=== PATIENT | female | born 1995 | race Caucasian/White ===

== ENCOUNTER 2016-06-05 14:33 | Emergency (ER) | payer OTHER ==
[~2016-06-05] VITALS: Wt 63.5 kg
[~2016-06-05 14:33] MED LIST: AMOXICILLIN500 MG PO; AMOXIL500 MG PO; ANUSOL HC30 GM PO; AUGMENTIN 875 M1 TAB PO; BACTRIM DS 8001 TA1 PO; CIPRO250 MG PO; CIPROFLOXACIN500 MG PO; CLARITIN10 MG PO; CLEOCIN150 MG PO; CLINDAMYCIN HC300 MG PO; COLACE100 MG PO; CYCLOBENZAPRINE10 MG PO; CYCLOBENZAPRINE5 M3 PO; DIFLUCAN150 MG PO; FLEXERIL10 MG PO; FLONASE 0.05% 121 EA NAS; FLONASE ALLERG9.9 ML NAS; FLONASE0.05 MG/AC NS; HYDROCODONE BIT1 T11 PO; IBU800 M1 PO; IBUPROFEN PO; KEFLEX500 MG PO; MACROBID100 M1 PO; MIRALAX POWDER17 G1 PO; MOTRIN 600 MG E4 TAB PO; MOTRIN600 MG PO; MOTRIN800 MG PO; Motrin,Rufen800 MG PO; NAPROSYN500 MG PO; NEXIUM40 MG PO; NKHM; NORCO 5-325 TA1 EACH PO; OMEPRAZOLE40 MG PO; PENICILLIN VK500 MG PO; PEPCID20 MG PO; PREDNISONE10 MG PO; PREDNISONE20 MG PO; PRENATAL1 TA1 PO; PREVACID15 MG PO; Peridex 473 ML473 ML PO; ROBITUSSIN AC 110 ML PO; ROBITUSSIN DM120 ML PO; SALINE NASAL M126 ML NAS; SEPTRA DS 800 M1 TAB PO; TAMIFLU75 MG PO; TRAMADOL HCL50 MG PO; TYLENOL325 M1 PO; ULTRAM50 MG PO; ZANTAC 150150 MG PO; ZITHROMAX Z PA250 MG PO; ZOFRAN ODT4 MG SL; ZOFRAN4 MG PO; ZYRTEC10 MG PO
[2016-06-05] MEDS ORDERED: NEXPLANON68 M2 SQ (14:42)
== END 2016-06-05 16:26 | disposition home or self-care (01) ==
LOC: ED 14:33
DX: S29.019A Strain of muscle and tendon of unspecified wall of thorax, initial encounter (principal); F17.200 Nicotine dependence, unspecified, uncomplicated; K21.9 Gastro-esophageal reflux disease without esophagitis; G43.909 Migraine, unspecified, not intractable, without status migrainosus; Z79.899 Other long term (current) drug therapy; Z91.030 Bee allergy status; Z91.018 Allergy to other foods; X58.XXXA Exposure to other specified factors, initial encounter; Y93.89 Activity, other specified; Y92.34 Swimming pool (public) as the place of occurrence of the external cause; Y99.9 Unspecified external cause status

== ENCOUNTER 2016-10-04 13:04 | Emergency (ER) | payer OTHER ==
[~2016-10-04] VITALS: Ht 160 cm; Wt 63.5 kg
[~2016-10-04 13:04] MED LIST changes: +NEXPLANON68 M2 SQ
[2016-10-04] MEDS ORDERED: CYCLOBENZAPRINE5 M3 PO (14:27)
== END 2016-10-04 23:13 | disposition home or self-care (01) ==
LOC: ED 13:04
DX: M62.830 Muscle spasm of back (principal); M54.6 Pain in thoracic spine; F17.200 Nicotine dependence, unspecified, uncomplicated; G43.909 Migraine, unspecified, not intractable, without status migrainosus; K21.9 Gastro-esophageal reflux disease without esophagitis; Z79.899 Other long term (current) drug therapy; Z91.030 Bee allergy status

== ENCOUNTER 2016-11-25 10:26 | Emergency (ER) | payer OTHER ==
[2016-11-25] MEDS ORDERED: PENICILLIN VK500 MG PO (10:30)
[2016-11-25] MEDS ORDERED: Peridex 473 ML473 ML PO (10:30)
[2016-11-25] MEDS ORDERED: NAPROSYN500 MG PO (10:30)
== END 2016-11-25 10:33 | disposition home or self-care (01) ==
LOC: ED 10:26
DX: K02.9 Dental caries, unspecified (principal); R03.0 Elevated blood-pressure reading, without diagnosis of hypertension; K21.9 Gastro-esophageal reflux disease without esophagitis; G43.909 Migraine, unspecified, not intractable, without status migrainosus; F17.200 Nicotine dependence, unspecified, uncomplicated; Z91.030 Bee allergy status; Z91.018 Allergy to other foods

== ENCOUNTER 2017-03-23 12:21 | Emergency (ER) | payer OTHER ==
[~2017-03-23] VITALS: Ht 160 cm; Wt 72.6 kg
[2017-03-23] MEDS ORDERED: Peridex 473 ML473 ML PO (12:50)
[2017-03-23] MEDS ORDERED: NAPROSYN500 MG PO (12:50)
[2017-03-23] MEDS ORDERED: ZOFRAN4 MG PO (12:50)
[2017-03-23] MEDS ORDERED: PENICILLIN VK500 MG PO (12:50)
== END 2017-03-23 12:43 | disposition home or self-care (01) ==
LOC: ED 12:21
DX: K02.9 Dental caries, unspecified (principal); R03.0 Elevated blood-pressure reading, without diagnosis of hypertension; F17.200 Nicotine dependence, unspecified, uncomplicated; K21.9 Gastro-esophageal reflux disease without esophagitis; G43.909 Migraine, unspecified, not intractable, without status migrainosus; Z91.030 Bee allergy status; Z91.018 Allergy to other foods

== ENCOUNTER 2017-03-27 21:51 | Emergency (ER) | payer OTHER ==
[~2017-03-27] VITALS: Ht 160 cm; Wt 72.6 kg
[2017-03-27] MEDS ORDERED: CLINDAMYCIN HC300 MG PO (22:31)
== END 2017-03-27 22:44 | disposition home or self-care (01) ==
LOC: ED 21:51
DX: K02.9 Dental caries, unspecified (principal); F17.200 Nicotine dependence, unspecified, uncomplicated; Z79.899 Other long term (current) drug therapy; Z91.030 Bee allergy status; Z91.018 Allergy to other foods

== ENCOUNTER 2017-08-08 12:36 | Emergency (ER) | payer OTHER ==
[~2017-08-08] VITALS: Ht 160 cm; Wt 72.6 kg
[2017-08-08 13:21] LABS: BILIRUBIN NEGATIVE (NEGATIVE); BLOOD 1+ (NEGATIVE); CLARITY SL CLOUDY (CLEAR); COLOR YELLOW (YELLOW); GLUCOSE NEGATIVE (NEGATIVE); KETONE NEGATIVE (NEGATIVE); LEUKO ESTERASE 2+ (NEGATIVE); NITRITE NEGATIVE (NEGATIVE); PH 6.5 (5.0-9.0); UROBILINOGEN 0.2 E.U./dl (0.2-1.0)
[2017-08-08 14:03] LABS: BACTERIA 2+; EPITHELIAL CELLS 30-40
[2017-08-08] MEDS ORDERED: PYRIDIUM200 M1 PO (14:54)
[2017-08-08] MEDS ORDERED: SEPTDS PO (14:54)
== END 2017-08-08 14:56 | disposition home or self-care (01) ==
LOC: ED 12:36
PROVIDERS: Physician Assistant
DX: R30.0 Dysuria (principal); R35.0 Frequency of micturition; R39.15 Urgency of urination; Z91.030 Bee allergy status

== ENCOUNTER 2018-03-04 19:11 | Emergency (ER) | payer OTHER ==
[~2018-03-04] VITALS: Ht 162.5 cm; Wt 72.6 kg
[~2018-03-04 19:11] MED LIST changes: +PYRIDIUM200 M1 PO; +SEPTDS PO
[2018-03-04] MEDS ORDERED: PRENATAL VITAM1 EAC4 PO (19:17)
[2018-03-04 19:33] LABS: BILIRUBIN NEGATIVE (NEGATIVE); BLOOD TRACE-LYSED (NEGATIVE); CLARITY CLEAR (CLEAR); COLOR YELLOW (YELLOW); GLUCOSE NEGATIVE (NEGATIVE); KETONE NEGATIVE (NEGATIVE); LEUKO ESTERASE NEGATIVE (NEGATIVE); NITRITE NEGATIVE (NEGATIVE); PH 6.5 (5.0-9.0); UROBILINOGEN 0.2 E.U./dl (0.2-1.0)
[2018-03-04 19:52] LABS: BACTERIA 1+; EPITHELIAL CELLS 35-40; WBC 0-2 wbc/hpf (0-5)
== END 2018-03-04 20:02 | disposition home or self-care (01) ==
LOC: ED 19:11
PROVIDERS: Nurse Practitioner Family
DX: Z32.01 Encounter for pregnancy test, result positive (principal); R03.0 Elevated blood-pressure reading, without diagnosis of hypertension; K21.9 Gastro-esophageal reflux disease without esophagitis; G43.909 Migraine, unspecified, not intractable, without status migrainosus; Z91.030 Bee allergy status; Z91.018 Allergy to other foods

== ENCOUNTER → 2018-03-20 | Outpatient (CLI) | payer OTHER ==
[~2018-03-20] MED LIST changes: +PRENATAL VITAM1 EAC4 PO
== END | disposition home or self-care (01) ==
LOC: US 13:00
DX: Z34.01 Encounter for supervision of normal first pregnancy, first trimester (principal); Z3A.01 Less than 8 weeks gestation of pregnancy

== ENCOUNTER 2018-05-22 14:54 | Emergency (ER) | payer OTHER ==
[~2018-05-22] VITALS: Ht 160 cm; Wt 61.7 kg
[2018-05-22 16:04] LABS: BILIRUBIN NEGATIVE (NEGATIVE); BLOOD NEGATIVE (NEGATIVE); CLARITY SL CLOUDY (CLEAR); COLOR YELLOW (YELLOW); GLUCOSE NEGATIVE (NEGATIVE); KETONE 1+ (NEGATIVE); LEUKO ESTERASE NEGATIVE (NEGATIVE); NITRITE NEGATIVE (NEGATIVE); PH 6.5 (5.0-9.0); SPECIFIC GRAVITY 1.015 (1.005-1.030); UROBILINOGEN 0.2 E.U./dl (0.2-1.0)
[2018-05-22 16:05] LABS: BASO # 0.1 10*3/uL (0.0-0.1); BASO % 0.4 % (0.0-1.0); EOS # 0.1 10*3/uL (0.0-0.4); EOS % 0.8 % (1.0-4.0); HEMATOCRIT 38.5 % (37.0-47.0); HEMOGLOBIN 12.9 g/dl (12.0-16.0); LYMPH # 2.2 10*3/uL (1.3-4.4); LYMPH % 16.3 % (27.0-41.0); MEAN CELL VOLUME 86.7 fl (81.0-99.0); MEAN CORPUSCULAR HGB 29.1 pg (27.0-31.0); MEAN CORPUSCULAR HGB CONC 33.5 g/dl (33.0-37.0); MEAN PLATELET VOLUME 12.3 fl (9.6-12.3); MONO # 0.9 10*3/uL (0.1-1.0); MONO % 6.4 % (3.0-9.0); NEUT # 10.3 10*3/uL (2.3-7.9); NEUT % 75.5 % (47.0-73.0); PLATELET COUNT AUTOMATED 194 10*3/uL (130-400); RED BLOOD COUNT 4.44 10*6/uL (4.10-5.10); RED CELL DISTRI WIDTH 12.8 % (0-14.5); WHITE BLOOD COUNT 13.7 10*3/uL (4.8-10.8)
[2018-05-22 16:10] LABS: BACTERIA 1+; MUCOUS 2+; WBC 0-2 wbc/hpf (0-5)
[2018-05-22 16:22] LABS: BUN 4 mg/dl (7-24); CHLORIDE 105 mmol/L (98-107); CREATININE 0.51 mg/dL (0.55-1.02); POTASSIUM 3.3 mmol/L (3.5-5.1); SODIUM 139 mmol/L (136-145)
[2018-08-05] MEDS ORDERED: PENICILLIN-VK500 M1 PO (23:14)
== END 2018-05-22 18:10 | disposition home or self-care (01) ==
LOC: ED 14:54
PROVIDERS: Nurse Practitioner
DX: O26.892 Other specified pregnancy related conditions, second trimester (principal); E86.0 Dehydration; O99.332 Smoking (tobacco) complicating pregnancy, second trimester; F17.200 Nicotine dependence, unspecified, uncomplicated; Z3A.16 16 weeks gestation of pregnancy; Z91.030 Bee allergy status; Z79.899 Other long term (current) drug therapy; Z91.018 Allergy to other foods; Z91.040 Latex allergy status

== ENCOUNTER 2019-07-24 10:20 | Emergency (ER) | payer OTHER ==
[~2019-07-24] VITALS: Ht 160 cm; Wt 74.8 kg
[~2019-07-24 10:20] MED LIST changes: +PENICILLIN-VK500 M1 PO
[2019-07-24] MEDS ORDERED: NAPROSYN500 MG PO (11:27)
[2019-07-24] MEDS ORDERED: AMOXICILLIN500 M2 PO (11:27)
== END 2019-07-24 11:00 | disposition home or self-care (01) ==
LOC: ED 10:20
DX: K04.7 Periapical abscess without sinus (principal); K02.9 Dental caries, unspecified; Z91.030 Bee allergy status; Z91.018 Allergy to other foods

== ENCOUNTER 2020-04-21 09:03 | Emergency (ER) | payer OTHER ==
[~2020-04-21] VITALS: Wt 74.8 kg
[2020-04-21 09:53] LABS: HEMATOCRIT 46.5 % (37.0-47.0); MEAN CELL VOLUME 88.1 fl (81.0-99.0); MEAN CORPUSCULAR HGB 28.6 pg (27.0-31.0); MEAN CORPUSCULAR HGB CONC 32.5 g/dl (33.0-37.0); PLATELET COUNT AUTOMATED 128 10*3/uL (130-400); RED BLOOD COUNT 5.28 10*6/uL (4.10-5.10); WHITE BLOOD COUNT 18.3 10*3/uL (4.8-10.8)
[2020-04-21 09:54] LABS: ACT PARTIAL THROMBO TIME 28.2 SECONDS (20.0-32.1)
[2020-04-21 09:58] LABS: ALBUMIN 4.1 gm/dl (3.1-4.5); ALKALINE PHOSPHATASE 84 U/L (45-117); BUN 10 mg/dl (7-24); CHLORIDE 110 mmol/L (98-107); CREATININE 0.69 mg/dL (0.55-1.02); LIPASE 42 U/L (73-393); POTASSIUM 3.9 mmol/L (3.5-5.1); SGOT/AST 11 IU/L (3-35); SGPT/ALT 20 U/L (12-78); SODIUM 140 mmol/L (136-145); TOTAL PROTEIN 8.2 gm/dL (6.4-8.2)
[2020-04-21 10:01] LABS: BASOPHILS 2 % (0-1); PLATELET SUFFICIENCY LOW (NORMAL); TOTAL CELLS COUNTED 100 #CELLS
[2020-04-21 10:04] LABS: BETA-HCG, QUANT < 1.0 mIU/mL (1-3)
== END 2020-04-21 10:34 | disposition left against medical advice (07) ==
LOC: ED 09:03
PROVIDERS: Family Medicine
DX: R10.9 Unspecified abdominal pain (principal); F17.200 Nicotine dependence, unspecified, uncomplicated; Z91.030 Bee allergy status; Z88.8 Allergy status to other drugs, medicaments and biological substances; Z91.018 Allergy to other foods; Z79.899 Other long term (current) drug therapy; Z79.2 Long term (current) use of antibiotics

== ENCOUNTER → 2020-04-21 | Outpatient (CLI) | payer OTHER ==
[~2020-04-21] MED LIST changes: +AMOXICILLIN500 M2 PO
== END | disposition home or self-care (01) ==
LOC: COVID19 12:38
PROVIDERS: ATTEND Internal Medicine
DX: Z11.52 Encounter for screening for COVID-19 (principal)

== ENCOUNTER 2020-05-02 20:40 | Emergency (ER) | payer OTHER | END 2020-05-02 21:52 | disposition left against medical advice (07) | LOC: ED 20:40 | DX: K08.89 Other specified disorders of teeth and supporting structures (principal); Z53.21 Procedure and treatment not carried out due to patient leaving prior to being seen by health care provider ==

== ENCOUNTER → 2021-01-28 | Outpatient (CLI) | payer OTHER | END | disposition home or self-care (01) | LOC: COVID19 17:29 | PROVIDERS: ATTEND Podiatrist Foot & Ankle Surgery | DX: Z11.52 Encounter for screening for COVID-19 (principal) ==